=== PATIENT | male | born 1955 | race Caucasian/White ===

== ENCOUNTER → 2017-05-14 | Outpatient (CLI) | payer OTHER | LOC: BMCIMAGING 11:53 | PROVIDERS: ATTEND Family Medicine | DX: Z04.9 Encounter for examination and observation for unspecified reason (principal); J98.4 Other disorders of lung; Z87.891 Personal history of nicotine dependence ==

== ENCOUNTER → 2017-05-23 | Outpatient (CLI) | payer OTHER ==
[~2017-05-23] MED LIST: IOPAMIDOL (ISOVUE-300) 100 ML BTL ONE
== END ==
LOC: FIMAGING 14:35
PROVIDERS: ATTEND Family Medicine
DX: R91.8 Other nonspecific abnormal finding of lung field (principal); Z87.891 Personal history of nicotine dependence
CPT/HCPCS: Q9967